=== PATIENT | female | born 1970 | race Caucasian/White ===

== ENCOUNTER 2021-03-16 10:55 | Outpatient (CLI) | payer MEDICARE, SELFPAY ==
[2021-03-16 11:29] LABS: Hemoglobin 13.1 g/dL (12.0-15.0); Mean Corpuscular HGB Conc 32.8 g/dl (32-36); Mean Corpuscular Hemoglobin 32.7 pg (26-34); Mean Corpuscular Volume 99.8 fl (80-100); Mean Platelet Volume 9.3 fl (7.4-10.4); Platelet Count Result 211 k/mm3 (150-375); Red Blood Count 4.01 M/mm3 (4.2-5.4); Red Cell Distribution Width 13.5 % (11.5-14.5); White Blood Count 4.3 K/mm3 (4.5-10.0)
[2021-03-16 12:28] LABS: Albumin Level 4.8 g/dL (3.5-5.1); Anion Gap 7 mmol/L (8-16); Blood Urea Nitrogen 18 mg/dL (7-17); Calcium 9.9 mg/dL (8.4-10.2); Carbon Dioxide 30 mmol/L (22-30); Chloride 105 mmol/L (98-107); Estimated Glomerular Filt Rate > 60; Glucose 104 mg/dL (65-110); Potassium 4.1 mmol/L (3.4-5.0); Sodium 142 mmol/L (137-145)
[2021-03-16 12:35] LABS: Prealbumin 17.5 mg/dL (17.6-36.0)
== END 2021-03-16 10:56 | disposition home or self-care (01) ==
LOC: ANHSURGERY 11:02
PROVIDERS: PCP Family Medicine; Visit Provider Surgery Plastic and Reconstructive Surgery
DX: Z98.84 Bariatric surgery status (principal)
CPT/HCPCS: 36415; 80048; 82040; 84134; 85027

== ENCOUNTER 2021-03-22 00:24 | Day surgery (SDC) | payer MEDICARE, SELFPAY ==
[2021-03-13 10:32] VITALS: BMI 20.9
--- NOTE | 2021-03-21 10:07 | WPDANESEPPF ---
Anes - Initial Pre Proc Eval Procedure: Operation Date: 03/22/21 07:30 Proposed Procedures p Panniculectomy - Marcello Rodríguez MD Date/Time: 03/21/21 10:07 Surgeon: Marcello Rodríguez MD Pre Op Diagnosis: panniculitis Patient Data Age: 50 Gender: F Height: 1.68 m Weight: 59 kg Allergies Allergy/AdvReac Type Severity Reaction Status Date / Time aspirin Allergy Ulcers Verified 03/22/21 06:10 megestrol Allergy Rash Verified 03/22/21 06:10 NSAIDS (Non-Steroidal Allergy Ulcers Verified 03/22/21 06:10 Anti-Inflamma pregabalin [From Lyrica] Allergy Gastrointestinal Verified 03/22/21 06:10 Upset Home Medications Medication Instructions Recorded Confirmed Type buprenorphine 8 mg-naloxone 2 mg 1 tablet SUBLINGUAL TID 08/02/20 03/13/21 History sublingual tablet buspirone 30 mg tablet 30 mg PO BID 08/02/20 03/13/21 History ferrous sulfate 325 mg (65 mg 325 mg PO BID 08/02/20 03/13/21 History iron) tablet fluoxetine 20 mg capsule 60 mg PO BID 08/02/20 03/13/21 History folic acid 1 mg tablet 1 mg PO DAILY 08/02/20 03/13/21 History mecobalamin (vitamin B12) 5,000 5,000 mcg PO DAILY 08/02/20 03/13/21 History mcg lozenge methylphenidate HCl 10 mg biphasic 20 mg PO DAILY 08/02/20 03/22/21 History 30-70 capsule,extended release multivitamin 1 tablet PO DAILY 08/02/20 03/13/21 History omeprazole 40 mg capsule,delayed 40 mg PO DAILY 08/02/20 03/13/21 History release tizanidine 4 mg capsule 4 mg PO QHS 08/02/20 03/13/21 History trazodone 150 mg tablet 150 mg PO QHS PRN 08/02/20 03/13/21 History albuterol sulfate 90 mcg INHALATION PRN PRN 03/13/21 03/22/21 History docusate sodium 100 mg capsule 100 mg PO BID #14 cap 03/14/21 Rx ondansetron HCl 4 mg tablet 4 mg PO Q6H PRN #30 tablet 03/14/21 Rx Patient hx anesthesia problems: none Family hx anesthesia problems: none Results Review: All pre-operative results and documents have been reviewed as part of the pre-operative evaluation. [facility] Past Medical History Medical History (Updated 03/19/21 @ 07:01 by Marcello Rodríguez MD) ADHD Anxiety Heartburn History of partial adherence to treatment Surgical History Surgical History (Updated 03/21/21 @ 10:07 by Hipolito Carter DO) History of appendectomy History of bilateral carpal tunnel release History of delivery History of cholecystectomy History of D&C History of gastric bypass 2002 History of hysterectomy History of knee replacement right knee History of knee surgery B/L tendon replacement and artoscopy History of liver biopsy History of tonsillectomy Social History Social History Smoking packs per day: 1.5 Smoking cigarettes per day: 30.0 Years smoked: 30 Smoking pack-years: 45.00 Smoking status: Former smoker Tobacco type: cigarettes Alcohol intake: never Substance use: current Substance use type: marijuana Living arrangements: alone Spiritual care concerns: No Anes - Eval Final PreProcedure Day of Procedure 03/21/21 10:07 Patient weight: normal Heart: regular rate and rhythm Lungs: clear to auscultation and normal air movement Airway: Mallampati scale class II Neurological: alert and oriented Last oral intake: >/= 8 hours ASA classification: III Emergent: no Anesthetic plan: proceed Anesthesia type and monitoring: general ETT and standard monitoring Results Review: All pre-operative results and documents have been reviewed as part of the pre-operative evaluation. Informed Consent: The patient's anesthetic plan and its attendant risks and benefits were discussed with the patient/family/POA. Questions were solicited and answers provided to the satisfaction of the patient/family/POA.
[2021-03-22] VITALS (10 sets, daily range): BP systolic 97–157; BP diastolic 51–96; PULSE 53–68; RESP 12–20; TEMP 36.3–36.9; O2SAT 93–100
[2021-03-22 06:25] LABS: Urine Cotinine NEGATIVE
[2021-03-22] MEDS: LACTATED RINGERS 1,000 ML 30 ML IV CONT ×2 (06:30→09:13)
--- NOTE | 2021-03-22 07:11 | WPDHPUPDATE1 ---
History and Physical Update Update Date/Time: 03/22/21 07:11 History and Physical has been reviewed, including an updated exam of the patient. There are NO changes in the patient's condition. Risks, benefits, and alternatives have been discussed and questions answered. Patient agrees to proceed with procedure.
[2021-03-22] MEDS: LACTATED RINGERS IRRIG 1,000 ML, LIDOCAINE HCL 1% LOCAL INJ 50 ML, EPINEPHrine HCL INJ ... INFILTRATE (07:27)
[2021-03-22] MEDS: ceFAZolin 2 GM/D5W 50 ML 2 GM/50 ML BAG IVPB (07:27)
--- NOTE | 2021-03-22 09:16 | P.OP_ITS ---
Procedure Note - Detailed Date of Procedure 03/22/21 Pre-op Diagnosis panniculitis Post-op Diagnosis same Procedure Performed Panniculectomy Surgeon Marcello Rodríguez MD Anesthesia general Findings Tissue removed - 1074 grams Description of Procedure Preoperatively the risks, benefits, alternatives were discussed in extensive detail. I wanted her to be very realistic about the risks involved as well as expectations. Made sure answered all of her questions to her satisfaction. Consent obtained. Patient was marked in the preoperative holding area with her verification. She was taken to the operating room placed supine on the operating room table. An esthesia was provided by anesthesiology and prepped and draped in a standard sterile fashion. Surgical time-out was taken. A thorough abdominal examination was completed. Stab incisions were made and I tumesced with a tumescent solution. Ten blade was used to make the lower incision elevating only what was necessary for the planned wedge resection. Once completed I verified my upper marking excise the intervening tissue. I then secured the upper tissue using 2-0 Vicryl. I tailor tacked into place. Placed a 19 Olvin drain coming out the right side. I then closed using 1. Stratafix followed by 3-0 Stratafix followed by running subcuticular 4-0 Monocryl and tissue glue. She was awoke and taken to the PACU without difficulty. All instrument sponge counts were correct at the end of the case. Estimated Blood Loss 30 Drains Yes (19 Olvin) Packing No Pathology none sent Complications No immediate complications Condition stable Disposition PACU
[2021-03-22] MEDS: fentaNYL CITRATE INJ (*CRX) 100 MCG/2 ML VIAL 25 MCG IV PUSH ×6 (09:23→09:44)
[2021-03-22] MEDS: HYDROmorphone HCL INJ (*CRX) 1 MG/ML SYR 0.5 MG IV PUSH ×4 (09:51→10:07)
[2021-03-22] MEDS: LACTATED RINGERS 1,000 ML 125 ML IV CONT (11:22)
[2021-03-22] MEDS: oxyCODONE/ACETAMINOPHEN (*CRX) 5-325 MG TABLET PO ×3 (12:12→23:20)
[2021-03-22] MEDS: carisoprodoL (*CRX) 350 MG TABLET PO (12:13)
[2021-03-22] MEDS: ONDANSETRON INJ 4 MG/2 ML VIAL IV PUSH (15:28)
[2021-03-22] MEDS: MORPHINE SULFATE (*CRX) 2 MG/ML INJ IV PUSH ×2 (15:37→20:57)
--- NOTE | 2021-03-22 16:40 | PC.NURSE ---
1600 Pt medicated for nausea and pain at 1528, with Zofran, and MS at 1537; She is sleeping at this time.
[2021-03-22] MEDS: FERROUS SULFATE 324 MG TABLET PO (17:40)
[2021-03-22] MEDS: ENOXAPARIN 40 MG/0.4 ML SYRINGE SUB-Q (17:43)
--- NOTE | 2021-03-22 18:56 | PC.NURSE ---
1040 Pt admitted to room 289 per stretcher from PACU after Panniculectomy today with Dr. Rodríguez. Transferred to bed. Pt awake and alert. Oriented to room, staffing and procedures. Admission folder at bedside. Pt's VSS and assessment WNL.
[2021-03-22] MEDS: DOCUSATE SODIUM 100 MG CAPSULE PO (20:55)
[2021-03-22] MEDS: FLUoxetine HCL 20 MG CAPSULE PO (20:56)
[2021-03-22] MEDS: PANTOPRAZOLE 40 MG TABLET PO (20:56)
[2021-03-22] MEDS: TIZANIDINE HCL 4 MG TABLET PO (20:56)
[2021-03-22] MEDS: busPIRone HCL 10 MG TABLET 30 MG PO (20:57)
[2021-03-22] MEDS: traZODone HCL 50 MG TABLET 150 MG PO (21:30)
[2021-03-23] VITALS: BP 101/62; PULSE 58; RESP 18; TEMP 36.7; O2SAT 98
[2021-03-23] MEDS: MORPHINE SULFATE (*CRX) 2 MG/ML INJ IV PUSH ×2 (02:31→04:24)
[2021-03-23 04:30] VITALS: BP 106/61; PULSE 64; RESP 18; TEMP 36.7; O2SAT 98
[2021-03-23] MEDS: oxyCODONE/ACETAMINOPHEN (*CRX) 5-325 MG TABLET PO (05:39)
--- NOTE | 2021-03-23 06:34 | WPDPN ---
Progress Note: A&P Assessment and Plan (1) Panniculitis: Code(s): M79.3 - Panniculitis, unspecified Status: Acute Assessment and Plan: She is doing very well after panniculectomy. Will discharge home. Follow-up. Today we had a lengthy open-ended conversation making sure answered all of her questions. Discussing the care. What monitor for. She has a full list of instructions. She will call with any questions or concerns. Subjective Date/time seen: 03/23/21 06:34 She is doing very well after panniculectomy. No fevers or chills. No nausea vomiting. No shortness of breath. No chest pain. No calf tenderness. Pain is controlled. She has been ambulating up to the chair. Tolerating diet. Review of Systems Review of Systems: All systems reviewed & are unremarkable except as noted in HPI and below Exam Narrative: Alert and oriented no obvious distress Respiratory unlabored Abdomen is healing well. No signs of infection. No hematoma. No seroma. Good color and capillary refill. Drains becoming serosanguineous. No calf tenderness. Negative Homans. Objective Data Vital Signs Vital Signs: Vital Signs - 24 hr 03/22/21 06:39 03/22/21 09:13 03/22/21 09:25 Temperature 36.9 C 36.4 C Pulse Rate 55 L 64 59 L Respiratory Rate 12 13 Blood Pressure 97/56 L 157/96 H 136/91 H Pulse Oximetry 98 100 100 03/22/21 09:40 03/22/21 09:55 03/22/21 10:10 Temperature Pulse Rate 61 65 53 L Respiratory Rate 13 20 14 Blood Pressure 129/86 137/84 121/75 Pulse Oximetry 100 93 96 03/22/21 10:25 03/22/21 11:00 03/22/21 15:35 Temperature 36.3 C L 36.9 C Pulse Rate 53 L 53 L 68 Respiratory Rate 17 16 20 Blood Pressure 111/73 114/67 112/67 Pulse Oximetry 96 99 98 03/22/21 20:00 03/23/21 00:00 03/23/21 04:30 Temperature 36.4 C 36.7 C 36.7 C Pulse Rate 57 L 58 L 64 Respiratory Rate 18 18 18 Blood Pressure 97/51 L 101/62 106/61 Pulse Oximetry 97 98 98 Intake/Output Intake/Output: Intake & Output 03/20/21 03/21/21 03/22/21 03/23/21 23:59 23:59 23:59 23:59 Intake Total 3100 100 Output Total 980 25 Balance 2120 75 Meds/Results Medications: Active Medications Generic Name Dose Route Start Last Admin Trade Name Freq PRN Reason Stop Dose Admin Albuterol 1 puff 03/22/21 10:31 Albuterol Sulfate (*Sp) Aerosol 1 Puff INHALATION PRN PRN Shortness Of Breath Buspirone HCl 30 mg 03/22/21 21:00 03/22/21 20:57 Buspirone Hcl 10 Mg Tablet PO 30 mg Q12HR DK Administration Docusate Sodium 100 mg 03/22/21 21:00 03/22/21 20:55 Docusate Sodium 100 Mg Capsule PO 100 mg Q12HR DK Administration Enoxaparin Sodium 40 mg 03/22/21 17:30 03/22/21 17:43 Enoxaparin 40 Mg/0.4 Ml Syringe SUB-Q 40 mg Q24H DK Administration Ferrous Sulfate 324 mg 03/22/21 17:00 03/22/21 17:40 Ferrous Sulfate 324 Mg Tablet PO 324 mg BID DK Administration Fluoxetine HCl 40 mg 03/23/21 09:00 Fluoxetine Hcl 20 Mg Capsule PO QAM DK Fluoxetine HCl 20 mg 03/22/21 21:00 03/22/21 20:56 Fluoxetine Hcl 20 Mg Capsule PO 20 mg HS DK Administration Methylphenidate HCl 20 mg 03/22/21 09:00 03/22/21 18:54 Methylphenidate Hcl (*Crx) 10 Mg Tablet PO Not Given QAM DK Morphine Sulfate 2 mg 03/22/21 09:24 03/23/21 04:24 Morphine Sulfate (*Crx) 2 Mg/Ml Inj IV PUSH 2 mg Q2H PRN Administration Pain Ondansetron HCl 4 mg 03/22/21 09:24 03/22/21 15:28 Ondansetron Inj 4 Mg/2 Ml Vial IV PUSH 4 mg Q6H PRN Administration Nausea Oxycodone/Acetaminophen 1 - 2 tablet 03/22/21 09:24 03/23/21 05:39 Oxycodone/Acetaminophen (*Crx) 5-325 Mg Tablet PO 2 tablet Q6H PRN Administration Pain Pantoprazole Sodium 40 mg 03/22/21 21:00 03/22/21 20:56 Pantoprazole 40 Mg Tablet PO 40 mg Q12HR DK Administration Tizanidine HCl 4 mg 03/22/21 21:00 03/22/21 20:56 Tizanidine Hcl 4 Mg Tablet PO 4 mg
--- NOTE | 2021-03-23 06:42 | PM.DS ---
DS: Admitting Diagnosis Discharge Date 03/23/2021 Admitting Diagnosis Panniculitis DS: Discharge Diagnosis Discharge Diagnosis (1) Panniculitis: Code(s): M79.3 - Panniculitis, unspecified Status: Acute DS: Summary Hospital Course Hospital Course: She underwent panniculectomy uneventfully. Postoperatively she has done well. Will discharge home. Time Spent with Patient Time attestation: Total time spent providing and/or coordinating discharge services: Exam Narrative: Alert and oriented no obvious distress Respiratory unlabored Abdomen is healing well. No signs of infection. No hematoma. No seroma. Good color and capillary refill. Drains becoming serosanguineous. No calf tenderness. Negative Homans. Discharge Plan Discharge Patient Disposition: Home, Self-Care Discharge Instructions: POST OPERATIVE DISCHARGE INSTRUCTIONS MARCELLO RODRÍGUEZ M.D. [facility] [address] [place] [address] [address] for 24 hours after anesthesia and while you are taking pain medication. Take all prescribed medication as directed Diet as tolerated. No lifting or activity that raises blood pressure for 48 hours. Regular walking / ambulation. No showering until directed to. Once you shower do not take pain medication before showering as the combination of medication and heat may cause you to feel dizzy or pass out. No pools or tubs for 2 weeks. Call with any questions or concerns. Dressing Care: Sponge bath until drain is out. Do NOT take buprenorphine/naloxone with prescribed pain medication. Wean off pain medication and may use Ibuprofen as tolerated / directed. If you have any questions or concerns, please call the office . If it is after hours you will be directed to the chain person exchange. Shortness of breath, chest pain, or other medical emergency dial 911 / proceed to the Emergency Room. Patient Instructions: [facility] Drain Care (GEN) Stand Alone Forms: General Discharge Instructions Follow-up/Referrals: Marcello Rodríguez MD [Physician] - 1 Week Discharge Medications: New oxycodone-acetaminophen 10-325 mg tablet 1 tablet PO Q6H PRN (Reason: pain) Qty: 15 RF: 0 Continued buspirone 30 mg tablet 30 mg PO BID RF: 0 fluoxetine [Prozac] 20 mg capsule 60 mg PO BID RF: 0 trazodone 150 mg tablet 150 mg PO QHS PRN (Reason: Insomnia) RF: 0 folic acid 1 mg tablet 1 mg PO DAILY RF: 0 methylphenidate HCl 10 mg capsule, ER biphasic 30-70 20 mg PO DAILY RF: 0 ferrous sulfate 325 mg (65 mg iron) tablet 325 mg PO BID RF: 0 multivitamin Tablet 1 tablet PO DAILY RF: 0 mecobalamin (vitamin B12) 5,000 mcg lozenge 5,000 mcg PO DAILY RF: 0 tizanidine 4 mg capsule 4 mg PO QHS RF: 0 omeprazole 40 mg capsule,delayed release(DR/EC) 40 mg PO DAILY RF: 0 ondansetron HCl [Zofran] 4 mg tablet 4 mg PO Q6H PRN (Reason: nausea and vomiting) Qty: 30 RF: 0 docusate sodium [Colace] 100 mg capsule 100 mg PO BID Qty: 14 RF: 0 albuterol sulfate 90 mcg/actuation HFA aerosol inhaler 90 mcg INHALATION PRN PRN (Reason: Shortness Of Breath) RF: 0 Held buprenorphine-naloxone 8-2 mg tablet, sublingual 1 tablet sublingual TID RF: 0 Hold Instructions: Resume on 04/02/21. Do not take with pain medication
[2021-03-23 08:10] VITALS: BP 110/53; PULSE 70; RESP 18; TEMP 36.9; O2SAT 96
[2021-03-23] MEDS: busPIRone HCL 10 MG TABLET 30 MG PO (08:19)
[2021-03-23] MEDS: FLUoxetine HCL 20 MG CAPSULE 40 MG PO (08:20)
[2021-03-23] MEDS: DOCUSATE SODIUM 100 MG CAPSULE PO (08:20)
[2021-03-23] MEDS: FERROUS SULFATE 324 MG TABLET PO (08:20)
[2021-03-23] MEDS: methylPHENIDATE HCL (*CRX) 10 MG TABLET 20 MG PO (08:21)
[2021-03-23] MEDS: PANTOPRAZOLE 40 MG TABLET PO (08:21)
[2021-03-27 11:38] LABS: Vitamin B1 30 nmol/L (8-30)
== END 2021-03-23 09:46 | disposition home or self-care (01) ==
LOC: ANHSURGERY 09:18 → ANHOB2 11:33
PROVIDERS: PCP Family Medicine; Visit Provider Surgery Plastic and Reconstructive Surgery
PROC: 0JB80ZZ Excision of Abdomen Subcutaneous Tissue and Fascia, Open Approach (ICD-10-PCS; CPT 15830; principal; 2021-03-22 07:30)
DX: M79.3 Panniculitis, unspecified (principal); Z79.51 Long term (current) use of inhaled steroids; F90.9 Attention-deficit hyperactivity disorder, unspecified type; F41.9 Anxiety disorder, unspecified; R12 Heartburn; Z87.891 Personal history of nicotine dependence; Z90.49 Acquired absence of other specified parts of digestive tract; Z98.891 History of uterine scar from previous surgery; Z79.899 Other long term (current) drug therapy
CPT/HCPCS: 15830; 80307; 84425; 99199; A9270; J0171; J0330; J0690; J1100; J1170; J1650; J2250; J2270; J2405; J2704; J3010; J7120

== ENCOUNTER 2024-05-23 17:29 | Emergency (ER) | payer OTHER, SELFPAY ==
--- NOTE | ~2024-05-23 | XR_ITS ---
XR shoulder LT min 2V DATE: 05/23/2024 18:10 INDICATION: Fell onto shoulder. Left shoulder injury, pain TECHNIQUE: 4 views COMPARISON: None FINDINGS: There is osteopenia. Normal alignment at the acromioclavicular and glenohumeral joints. Mild glenohumeral osteoarthritis. No fracture, dislocation, periosteal reaction or bone destruction or abnormal soft tissue calcificati on. Probable old healed anterolateral left sixth rib fracture. Old healed posterolateral left 10th rib fr acture. IMPRESSION: Osteopenia Mild glenohumeral osteoarthritis No fracture or dislocation of left shoulder Old healed left rib fractures Reviewed, dictated and finalized at location A. MACHINE OPERATOR
--- NOTE | ~2024-05-23 | XR_ITS ---
XR chest 2V DATE: 05/23/2024 18:10 INDICATION: Fall onto chest and right shoulder TECHNIQUE: PA and lateral views COMPARISON: None FINDINGS: Normal heart size. No hilar or mediastinal enlargement. An. No pulmonary infiltrate or cons olidation, pleural effusion or pulmonary vascular congestion or pneumothorax is detected. There is moderately prominent loss of height of approximately T9 vertebral body. There is degenerativ e spurring of the thoracic spine. Surgical clips are noted overlying the abdomen on the lateral view. Status post right shoulder arthroplasty. IMPRESSION: Bilateral hyperinflation suggesting COPD; no active cardiopulmonary disease Reviewed, dictated and finalized at location A. T PRESS OPERATOR
[2024-05-23 17:36] VITALS: BP 141/83; PULSE 60; RESP 18; TEMP 36.4; O2SAT 100
[2024-05-23] MEDS: ACETAMINOPHEN 500 MG TABLET 1000 MG PO (18:39)
--- NOTE | 2024-05-23 21:16 | PC.NURSE ---
gave nurse to nurse report to lebron FELICIANO at this time. lebron FELICIANO said she richard send trasnport for the pt
--- NOTE | 2024-05-23 22:17 | ED_ITS ---
HPI - Fall General Chief Complaint: Fall Stated Complaint: fall Time Seen by Provider: 05/23/24 17:49 History of Present Illness HPI Narrative: 53-year-old female presenting to the emergency department after a ground level mechanical fall. Patient states she tripped over her new shoes and fell forward onto a chest that was on a table. She did hit her head in the anterior portion of her chest, did not lose consciousness, did not have any whiplash or hyperextension injury. Not taking any blood thinners, no history of seizure disorder. She presents today for evaluation of some chest discomfort where she struck the object. No headache, vision changes, mental status changes, no d ifficulty breathing or chest tightness. No nausea vomiting, abdominal pain or back pain. Was otherwise in her normal state of health, did not take anything prior to arrival. Related Data Home Medications ?Medication ?Instructions ?Recorded ?Confirmed ?Last Taken ?Type buprenorphine 8 mg-naloxone 2 mg 1 tablet sublingual TID 08/02/20 03/13/21 03/22/21 History sublingual tablet buspirone 30 mg tablet 30 mg PO BID 08/02/20 03/13/21 03/22/21 History ferrous sulfate 325 mg (65 mg 325 mg PO BID 08/02/20 03/13/21 03/18/21 History iron) tablet fluoxetine 20 mg capsule (Prozac) 60 mg PO BID 08/02/20 03/13/21 03/22/21 History folic acid 1 mg tablet 1 mg PO DAILY 08/02/20 03/13/21 03/18/21 History mecobalamin (vitamin B12) 5,000 5,000 mcg PO DAILY 08/02/20 03/13/21 03/18/21 History mcg lozenge methylphenidate HCl 10 mg biphasic 20 mg PO DAILY 08/02/20 03/22/21 03/21/21 History 30-70 capsule,extended release multivitamin 1 tablet PO DAILY 08/02/20 03/13/21 03/18/21 History omeprazole 40 mg capsule,delayed 40 mg PO DAILY 08/02/20 03/13/21 03/21/21 History release tizanidine 4 mg capsule 4 mg PO QHS 08/02/20 03/13/21 03/21/21 History trazodone 150 mg tablet 150 mg PO QHS PRN Insomnia 08/02/20 03/13/21 03/21/21 History albuterol sulfate 90 mcg/actuation 90 mcg inhalation PRN PRN 03/13/21 03/22/21 03/21/21 History aerosol inhaler Shortness Of Breath Allergies Allergy/AdvReac Type Severity Reaction Status Date / Time aspirin Allergy Ulcers Verified 07/23/21 14:19 megestrol Allergy Rash Verified 07/23/21 14:19 NSAIDS (Non-Steroidal Allergy Ulcers Verified 07/23/21 14:19 Anti-Inflamma pregabalin (From Lyrica) Allergy Gastrointestinal Verified 07/23/21 14:19 Upset Review of Systems Review of Systems: As reviewed above in HPI [facility] Past Medical History Medical History History of partial adherence to treatment Heartburn ADHD Anxiety Surgical History Surgical History History of knee replacement right knee History of knee surgery B/L tendon replacement and artoscopy History of liver biopsy History of appendectomy History of cholecystectomy History of hysterectomy History of gastric bypass 2002 History of D&C History of delivery History of bilateral carpal tunnel release History of tonsillectomy Social History Social History Smoking packs per day: 1.5 Smoking cigarettes per day: 30.0 Years smoked: 30 Smoking pack-years: 45.00 Smoking status: Heavy tobacco smoker Tobacco type: cigarettes Alcohol intake: never Substance use: former Substance use type: opiates Other substance usage details: currently smokes [employer] blanco daily Last use: last pm Living arrangements: alone Spiritual care concerns: No Exam Narrative: GENERAL: [Well-appearing, well-nourished, and in no acute distress.] HEAD: [Normocephalic, atraumatic.] EYES: [PERRLA and EOMI.] ENT: Nares clear, no rhinorrhea or epistaxis. Mucous membranes moist. NECK: Supple. CHEST: Some focal tenderness over the sternum on the left aspect anteriorly but no overlying skin changes or deformity. No crepitus. Clear breath sounds throughout without any tachypnea, labored breathing or coarse breath sounds. HEART: [Regular rate and rhythm]. No murmur heard. [Normal peripheral pulses.] ABDOMEN: [Soft, nondistended], [nontender], [No rigidity or guarding] EXTREMITIES: Normal range of motion. [No edema.] Mild tenderness over the anterior aspect of her left shoulder near the lateral clavicle but no step-offs deformities. SKIN: Warm, dry, no rash. NEURO: [No focal deficits]. Alert and oriented [x3.] PSYCH: [Normal mood and affect.] Course Vital Signs Vital signs: Vital Signs Temperature 36.4 C 05/23/24 17:36 Pulse Rate 60 05/23/24 17:36 Respiratory Rate 18 05/23/24 17:36 Blood Pressure 141/83 H 05/23/24 17:36 Pulse Oximetry 100 05/23/24 17:36 Oxygen Delivery Room Air 05/23/24 17:36 Temperature 36.4 C 05/23/24 17:36 Pulse Rate 60 05/23/24 17:36 Respiratory Rate 18 05/23/24 17:36 Blood Pressure 141/83 H 05/23/24 17:36 Pulse Oximetry 100 05/23/24 17:36 Oxygen Delivery Room Air 05/23/24 17:36 MDM - Fall MDM Narrative Medical decision making narrative: 53-year-old female presenting after mechanical fall. She fell and tripped forward on her new shoes and struck her chest and left-sided proximal shoulder against a table. Did not hit her head or lose consciousness. Clinically she appears well not any acute distress with normal vital signs. Patient did strike her chin but did not have a hyperextension injury or any syncope. Meet [place] head CT rules to exclude any significant injury we do not need CT imaging is of her head and neck at this time. X-rays were obtained of her left shoulder and chest to see if there is any bony or intrathoracic process. She was given Tylenol for analgesia. Chest x-ray shows COPD but no active cardiopulmonary disease, no pneumothorax or hemothorax. Shoulder x-ray shows osteopenia but no fractures dislocations. Patient is stable for discharge home at this time given her mild injury without any focal findings on her exam or imaging studies. Medical Records Attestation: I reviewed the patient's medical records. Discharge Plan Discharge Clinical Impression: Fall from slip, trip, or stumble, Acute chest wall pain, Acute shoulder pain Patient Disposition: Home, Self-Care Condition: Stable Instructions: Antibiotic Form, Muscle Strain (ED), Contusion in Adults (ED) Additional Instructions: Your x-ray shows no fractures dislocations. He can take [id number] pain control medications such as Tylenol, ibuprofen or Advil. Heat and ice packs to the area that her pain as needed. Return with any new or worsening concerns or follow-up with regular doctor outpatient Patient Language: Sammarinese Prescriptions: No Action buspirone 30 mg tablet 30 mg PO BID fluoxetine [Prozac] 20 mg capsule 60 mg PO BID Rx Instructions: 40mg in am, 20mg at hs trazodone 150 mg tablet 150 mg PO QHS PRN (Reason: Insomnia) folic acid 1 mg tablet 1 mg PO DAILY methylphenidate HCl 10 mg capsule, ER biphasic 30-70 20 mg PO DAILY ferrous sulfate 325 mg (65 mg iron) tablet 325 mg PO BID multivitamin Tablet 1 tablet PO DAILY mecobalamin (vitamin B12) 5,000 mcg lozenge 5,000 mcg PO DAILY Rx Instructions: allow to dissolve in mouth OR may chew lightly before swallowing tizanidine 4 mg capsule 4 mg PO QHS buprenorphine-naloxone 8-2 mg tablet, sublingual 1 tablet sublingual TID omeprazole 40 mg capsule,delayed release(DR/EC) 40 mg PO DAILY albuterol sulfate 90 mcg/actuation HFA aerosol inhaler 90 mcg INHALATION PRN PRN (Reason: Shortness Of Breath) Follow-up/Referrals: UNKNOWN,DOCTOR [Primary Care Provider] - Time of Disposition: 20:44
== END 2024-05-23 21:02 | disposition home or self-care (01) ==
PROVIDERS: Emergency Provider Student in an Organized Health Care Education/Training Program
DX: R07.89 Other chest pain (principal); M25.512 Pain in left shoulder; F17.210 Nicotine dependence, cigarettes, uncomplicated; F41.9 Anxiety disorder, unspecified; F90.9 Attention-deficit hyperactivity disorder, unspecified type
CPT/HCPCS: 71046; 73030; 99283; A9270